=== PATIENT | female | born 1970 | race Caucasian/White ===

== ENCOUNTER → 2021-08-25 | Outpatient (CLI) | payer OTHER ==
[~2021-08-25] MED LIST: CELEXA20 MG PO; HYDROCHLOROTH12.5 MG PO; LABETALOL HCL100 MG PO; LEVOTHYROXINE125 MC1 PO; SAVELLA100 MG PO; ZOCOR40 MG PO; [UNRECOGNIZED DRUG - OTHER]
[2021-08-25 09:11] LABS: RED BLOOD COUNT 4.51 M/UL (4.00-5.10); WHITE BLOOD COUNT 12.7 K/UL (4.5-11.0)
[2021-08-25 09:42] LABS: BUN/CREATININE RATIO 21 (0-10)
== END ==
LOC: OPSV2 08:00
PROVIDERS: Anesthesiology
DX: Z01.812 Encounter for preprocedural laboratory examination (principal); G56.01 Carpal tunnel syndrome, right upper limb
CPT/HCPCS: 80048; 85025

== ENCOUNTER → 2021-09-02 | Day surgery (SDC) | payer OTHER ==
[~2021-09-02] MED LIST changes: +HYDROCODON-ACE1 EAC4 PO; +VITAMIN D250 MCG PO
== END | disposition home or self-care (01) ==
LOC: OR 06:24
DX: G56.03 Carpal tunnel syndrome, bilateral upper limbs (principal); I10 Essential (primary) hypertension; F17.210 Nicotine dependence, cigarettes, uncomplicated
CPT/HCPCS: J1100; J2001; J2250; J2405; J2704; J3010; J7120